=== PATIENT | male | born 1960 | race Caucasian/White ===

== ENCOUNTER 2016-11-08 02:27 | Observation (INO) | payer OTHER ==
[~2016-11-08] VITALS: Ht 177.8 cm; Wt 152.0 kg
[~2016-11-08 02:27] MED LIST: ASPI81TA21 PO; DILT180C PO; FLAX10007 PO; LPT/20 PO; LSN20 PO; LXP10 PO; MULT60CA PO; NTRGSL/4 UT; PANT40TA PO; RST15 PO; WARF2TAB PO; WARF4TAB PO
[2016-11-08] MEDS ORDERED: ESCI1TAB10 PO (02:58)
[2016-11-08] MEDS ORDERED: TEMA15CA4 PO (02:59)
[2016-11-08] MEDS ORDERED: APIX1TAB3 PO (03:00)
[2016-11-08 03:02] LABS: BASO % 0.4 %; BASO ABS # 0.03 K/uL (0-0.2); COMPLETE YES; EOS % 1.9 %; HEMATOCRIT 39.9 % (42-52); IG% 0.4 %; LYMPH % 23.9 %; MEAN CELL VOLUME 89.3 fL (80-100); MEAN CORPUSCULAR HEMOGLOBIN 31.5 pg (25-34); MEAN CORPUSCULAR HGB CONC 35.3 g/dl (32-36); MEAN PLATELET VOLUME 9.1 fL (7.4-10.4); MONO % 6.9 %; NEUT % 66.5 %; PLATELET COUNT 214 K/uL (130-400); RED BLOOD COUNT 4.47 M/uL (4.7-6.1); WHITE BLOOD COUNT 7.96 K/uL (4.8-10.8)
[2016-11-08] MEDS ORDERED: CHOL1000 PO (03:02)
--- NOTE | 2016-11-08 03:14 | EMERGENCY ROOM VISIT NOTE ---
History Report prepared by Fernando: Kali Salgado Under the Supervision of: Dr. Zhanna Traore D.O. First contact with patient: 02:36 Chief Complaint: CARDIAC ASSESSMENT Stated Complaint: CARDIAC ASSESSMENT History of Present Illness The patient is a 56 year old male who presents to the Emergency Room via [facility] with complaints of chest discomfort that began and resolved shortly prior to arrival. The patient states that he experienced slight pain in his chest, before becoming "extremely hot." The burning sensation in his chest resolved spontaneously before the patient took any nitroglycerin. He was sitting in his chair when the burning began and he was not exerting himself in anyway. The patient also notes becoming light headed and weak following this episode. He felt like he was close to passing out, but did not go unconscious at anytime. He is not experiencing the burning or chest pain at this time. He denies any recent fevers, chills, or coughs. The patient has a history of SVT and had a cardiac catheterization a few years ago. He notes having one blockage of 30-40%, but did not have any stents placed. The patient is on hypertension and hyperlipidemia medication along with Lisinopril and Cardizem. 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 A total of 10 systems reviewed and were otherwise negative. Past Medical & Surgical Medical Problems: (1) Emphysema (2) Hypertension (3) Sleep apnea (4) Stomach problems (5) SVT (supraventricular tachycardia) Surgical Problems: (1) Hx of prior ablation treatment Family History Diabetes mellitus FHx: heart disease Hypertension Social History Smoking Status: Current Every Day Smoker Alcohol Use: occasionally Marital Status: single Housing Status: lives alone Occupation Status: retired Current/Historical Medications Scheduled Apixaban (Eliquis), 5 MG PO BID Aspirin Enteric Coated (Ecotrin Or Generic), 81 MG PO DAILY Atorvastatin (Atorvastatin Calcium), 40 MG PO DAILY Cholecalciferol (Vitamin D3), 500 INTERUNIT PO DAILY Diltiazem Hcl Coated Beads (Diltiazem Hcl Er), 180 MG PO DAILY Escitalopram Oxalate (Lexapro), 20 MG PO HS Flaxseed (Linseed) (Flax Seed Oil), 2,000 MG PO DAILY Lisinopril (Lisinopril), 20 MG PO BID Multiple Vitamins W/ Minerals (Preservision Areds 2), 1 CAP PO DAILY Pantoprazole (Protonix), 40 MG PO BID Scheduled PRN Nitroglycerin (Nitrostat), 0.4 MG UT PRN PRN for Chest Pain Temazepam (Restoril), 15 MG PO HS PRN for insomnia Allergies Coded Allergies: No Known Allergies (Unverified , 11/08/16) Physical Exam Vital Signs Date Time Temp Pulse Resp B/P Pulse Ox O2 Delivery O2 Flow Rate FiO2 11/08/16 05:25 79 18 145/90 94 11/08/16 04:05 75 20 131/73 94 Room Air 11/08/16 02:36 95 Room Air 11/08/16 02:36 36.7 86 20 177/123 95 Room Air 11/08/16 02:35 86 Physical Exam HEENT: Head - normocephalic and atraumatic Pupils are equal, round, and reactive to light. Extraocular eye muscles are intact, and sclera are anicteric. Nose - moist nasal mucosa without discharge. Mouth - moist buccal mucosa. Oropharynx is nonerythematous and there is no tonsillar exudate or edema noted. Neck: Supple; no JVD, nuchal rigidity, cervical lymphadenopathy, or auscultated bruits. Heart: Regular rate and rhythm. There is a normal S1 and S2 with no murmurs, clicks, or gallops appreciated. Lungs: Clear to auscultation bilaterally with no wheezes, rales, or rhonchi. Abdomen: Soft, completely nontender, nondistended, with good bowel sounds. There are no palpable pulsatile masses or hepatosplenomegaly. There is no guarding, rigidity, or rebound noted. Extremities: No evidence of cyanosis, clubbing, or edema. There are easily palpable peripheral pulses. Skin: warm and dry with good turgor and no rashes. Medical Decision & Procedures ER Provider Diagnostic Interpretation: X-ray results as stated below per interpretation by me and the radiologist: CHEST X-RAY: Significant cardiomegaly. X-ray is under-penetrated. No obvious pulmonary infiltrate. Laboratory Results 11/08/16 02:48 Red Blood Count 4.47, Mean Corpuscular Volume 89.3, Mean Corpuscular Hemoglobin 31.5, Mean Corpuscular Hemoglobin Concent 35.3, Mean Platelet Volume 9.1, Neutrophils (%) (Auto) 66.5, Lymphocytes (%) (Auto) 23.9, Monocytes (%) (Auto) 6.9, Eosinophils (%) (Auto) 1.9, Basophils (%) (Auto) 0.4, Neutrophils # (Auto) 5.30, Lymphocytes # (Auto) 1.90, Monocytes # (Auto) 0.55, Eosinophils # (Auto) 0.15, Basophils # (Auto) 0.03 11/08/16 02:48 Test 11/08/16 02:48 White Blood Count 7.96 K/uL (4.8-10.8) Red Blood Count 4.47 M/uL (4.7-6.1) Hemoglobin 14.1 g/dL (14.0-18.0) Hematocrit 39.9 % (42-52) Mean Corpuscular Volume 89.3 fL (80-100) Mean Corpuscular Hemoglobin 31.5 pg (25-34) Mean Corpuscular Hemoglobin Concent 35.3 g/dl (32-36) Platelet Count 214 K/uL (130-400) Mean Platelet Volume 9.1 fL (7.4-10.4) Neutrophils (%) (Auto) 66.5 % Lymphocytes (%) (Auto) 23.9 % Monocytes (%) (Auto) 6.9 % Eosinophils (%) (Auto) 1.9 % Basophils (%) (Auto) 0.4 % Neutrophils # (Auto) 5.30 K/uL (1.4-6.5) Lymphocytes # (Auto) 1.90 K/uL (1.2-3.4) Monocytes # (Auto) 0.55 K/uL (0.11-0.59) Eosinophils # (Auto) 0.15 K/uL (0-0.5) Basophils # (Auto) 0.03 K/uL (0-0.2) RDW Standard Deviation 44.2 fL (36.4-46.3) RDW Coefficient of Variation 13.5 % (11.5-14.5) Immature Granulocyte % (Auto) 0.4 % Immature Granulocyte # (Auto) 0.03 K/uL (0.00-0.02) D-Dimer < 190 ug/L FEU (0-500) Anion Gap 8.0 mmol/L (3-11) Est Creatinine Clear Calc Drug Dose 102.3 ml/min Estimated GFR () 77.9 Estimated GFR (Non- 67.2 BUN/Creatinine Ratio 13.4 (10-20) Calcium Level 8.7 mg/dl (8.5-10.1) Total Bilirubin 0.4 mg/dl (0.2-1) Aspartate Amino Transf (AST/SGOT) 15 U/L (15-37) Alanine Aminotransferase (ALT/SGPT) 30 U/L (12-78) Alkaline Phosphatase 140 U/L (45-117) Total Creatine Kinase 90 U/L (39-308) Creatine Kinase MB 0.9 ng/ml (0.5-3.6) Creatine Kinase MB Ratio 1.0 (0-3.0) Troponin I < 0.015 ng/ml (0-0.045) Total Protein 7.0 gm/dl (6.4-8.2) Albumin 3.6 gm/dl (3.4-5.0) Globulin 3.4 gm/dl (2.5-4.0) Albumin/Globulin Ratio 1.1 (0.9-2) Laboratory results per my review. ECG Indication: chest pain Rate (beats per minute): 85 Rhythm: normal sinus Findings: no acute ischemic change, no ectopy ED Course 0238: Past medical records reviewed. The patient was evaluated in room B11. A complete history and physical exam was performed. The patient was observed on the cardiac monitor technician and pulse oximeter. Laboratory studies were drawn as above. A twelve-lead EKG was obtained as described above. The patient a portable chest x-ray as described above. 0354: I checked on the patient at this time. He remains hypertensive. I ordered Lopressor on this patient but nursing staff repeated blood pressure prior to administering it and it had come down nicely on its own. 0445: I discussed the case with Dr. [facility] hospitalist, he will evaluate the patient for further treatment. Medical Decision The patient is a 56 year old male who presents to the Emergency Department for "burning" in his chest. Differential Diagnosis include; Cardiac dysrhythmia, cardiac ischemia, unstable angina, near syncope, aortic dissection, and pulmonary embolism. Laboratory studies were reviewed and showed; No leukocytosis, stable hemoglobin and hematocrit, D-dimer less than 190, glucose of 110, normal renal function, normal LFTs, and negative cardiac enzymes. This is a 56-year-old male patient with a history of A. fib status post ablation who presents to the emergency department after an episode of left- sided chest pain and a near syncopal event. The patient was at rest this evening when he had a very sad and onset of chest discomfort and near syncope. I'm concerned about the possibility of a cardiac dysrhythmia. Cardiac enzymes and twelve-lead EKG were unremarkable. The patient remained hemodynamically stable while here in the emergency department. I discussed the case with the [facility] hospitalist and they will evaluate for further management. Consults Time Called: 035 Consulting Physician: Dr. Adalgisa GARDNER Hospitalist Returned Call: [phone] I discussed the case with Dr. Adalgisa GARDNER hospitalist, he will evaluate the patient for further treatment. Impression Primary Impression: Left sided chest pain Additional Impression: Near syncope Scribe Attestation The scribe's documentation has been prepared under my direction and personally reviewed by me in its entirety. I confirm that the note above accurately reflects all work, treatment, procedures, and medical decision making performed by me. Departure Information Dispostion Being Evaluated By Hospitalist Referrals Wally Paredes D.O. (PCP) Patient Instructions My [facility] Health Problem Qualifiers
[2016-11-08 03:20] LABS: ALT/SGPT 30 U/L (12-78); AST/SGOT 15 U/L (15-37); BLOOD UREA NITROGEN 16 mg/dl (7-18); BUN/CREATININE RATIO 13.4 (10-20); CALCIUM 8.7 mg/dl (8.5-10.1); CARBON DIOXIDE 26 mmol/L (21-32); CHLORIDE 107 mmol/L (98-107); GLUCOSE 110 mg/dl (70-99); SODIUM 141 mmol/L (136-145)
[2016-11-08 03:25] LABS: ALB/GLOB RATIO 1.1 (0.9-2); ALKALINE PHOSPHATASE 140 U/L (45-117)
[2016-11-08] MEDS ORDERED: METOPROLOL TARTRATE 1 MG/ML VIAL IV STA (04:05)
[2016-11-08] MEDS ORDERED: ONDANSETRON INJ 2 MG/ML 2 ML VIAL IV PRN (04:45)
[2016-11-08] MEDS ORDERED: POLYETHYLENE (MIRALAX) 17 GM PACK PO PRN (04:45)
[2016-11-08] MEDS ORDERED: NITROGLYCERIN 0.4 MG SL PER TAB CHARGE SL PRN (04:45)
[2016-11-08] MEDS ORDERED: ACETAMINOPHEN 325 MG TAB PO PRN (04:45)
[2016-11-08] MEDS ORDERED: TEMAZEPAM 15 MG CAP PO PRN (04:45)
[2016-11-08] MEDS ORDERED: MAGNESIUM HYDROXIDE SUSP 30 ML UDC PO PRN (04:45)
[2016-11-08] MEDS ORDERED: ALUMINUM/MAGNESIUM/SIMETH (MAALOX MAX) 30 ML UDC PO PRN (04:45)
[2016-11-08] MEDS ORDERED: NITROGLYCERIN 0.4 MG SL PER TAB CHARGE UT PRN (04:45)
--- NOTE | 2016-11-08 05:05 | History and Physical ---
History & Physical Date & Time of Service: Nov 08, 2016 at 04:56 Chief Complaint: Cardiac Assessment Primary Care Physician: Wally Paredes D.O. History of Present Illness Source: patient This is a 56 y/o M with a pmh of morbid obesity, HTN, mild CAD s/p cath, PE (on elaquis), DVT, Obesity, PSVT s/p Catheter ablation, sleep apnea s/p oral surgery , stable suprasellar lesions (follows [facility]) who presents with left sided chest pain that started a few hours ago. He reports having an associated "hot sensation" along with heart fluttering. He checked his blood pressure and it was 171/105 and the monitor reported an irregular rhythm with a rate in the 90' s. He subsequently started getting lightheaded and short of breath. This lasted about 0.5 hr before ALS got there. His symptoms started to resolve and he did not take nitroglycering. The pain was probably a 3/10 and more of an 'Annoyance " than real pain. He has not experienced pain likethis before. He denies any radiation to his arm or neck. He did have some nausea earlier. Currently Denies fever, chills, vomiting, chest pain, shortness of breath, abdominal pain, changes in bowel habits, melena, hematochezia. He has a history of SVT that was managed with meds for years and eventually had an ablation and has been SVT free since. He did have a cardiac cath in 2013 that revealed 30-40% stenosis of his RCA He did have a recent Stress echo (apr 2016) that showed some decreased exercise tolerance but no ECG changes and no echo findings concerning for ischemia/infarction. LVEF of 60% with Mild LVH Past Medical/Surgical History Medical Problems: (1) Emphysema Status: Chronic (2) Hypertension Status: Chronic (3) Sleep apnea Status: Chronic (4) Stomach problems Status: Chronic Family History Diabetes mellitus FHx: heart disease Hypertension Social History Smoking Status: Former Smoker Alcohol Use: occasionally Drug Use: none Marital Status: single Housing status: lives alone Occupational Status: retired Allergies Coded Allergies: No Known Allergies (Unverified , 11/08/16) Home Medications Scheduled Apixaban (Eliquis), 5 MG PO BID Aspirin Enteric Coated (Ecotrin Or Generic), 81 MG PO DAILY Atorvastatin (Atorvastatin Calcium), 40 MG PO DAILY Cholecalciferol (Vitamin D3), 500 INTERUNIT PO DAILY Diltiazem Hcl Coated Beads (Diltiazem Hcl Er), 180 MG PO DAILY Escitalopram Oxalate (Lexapro), 20 MG PO HS Flaxseed (Linseed) (Flax Seed Oil), 2,000 MG PO DAILY Lisinopril (Lisinopril), 20 MG PO BID Multiple Vitamins W/ Minerals (Preservision Areds 2), 1 CAP PO DAILY Pantoprazole (Protonix), 40 MG PO BID Scheduled PRN Nitroglycerin (Nitrostat), 0.4 MG UT PRN PRN for Chest Pain Temazepam (Restoril), 15 MG PO HS PRN for insomnia Review of Systems Constitutional: + sweats, No chills, No fever Eyes: No worsening of vision ENT: No hearing loss Respiratory: + shortness of breath, No cough, No dyspnea at rest, No dyspnea on exertion, No sputum, No wheezing Cardiovascular: + chest pain, No PND, No claudication, No edema, No orthopnea Abdomen: No constipation, No diarrhea, No nausea, No pain, No vomiting Musculoskeletal: No calf pain, No joint pain, No muscle pain, No swelling Genitourinary - Male: No dysuria, No hematuria, No urinary frequency, No urinary urgency Physical Exam Vital Signs Date Time Temp Pulse Resp B/P Pulse Ox O2 Delivery O2 Flow Rate FiO2 11/08/16 04:05 75 20 131/73 94 Room Air 11/08/16 02:36 95 Room Air 11/08/16 02:36 36.7 86 20 177/123 95 Room Air 11/08/16 02:35 86 General Appearance: no apparent distress, + obese Head: normocephalic, atraumatic Eyes: PERRL, EOMI ENT: hearing grossly normal Neck: supple, no adenopathy, thyroid normal Respiratory/Chest: lungs clear, normal breath sounds, no respiratory distress Cardiovascular: regular rate, rhythm, no edema, no murmur, normal peripheral pulses Abdomen/GI: normal bowel sounds, non tender, soft Back: normal inspection, no CVA tenderness, normal range of motion Extremities/Musculoskelatal: no calf tenderness, no pedal edema, normal range of motion 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, no motor/sensory deficits, alert, normal mood/affect, oriented x 3 Diagnostics Laboratory Results Results Past 24 Hours Test 11/08/16 02:48 Range/Units White Blood Count 7.96 4.8-10.8 K/uL Red Blood Count 4.47 4.7-6.1 M/uL Hemoglobin 14.1 14.0-18.0 g/dL Hematocrit 39.9 42-52 % Mean Corpuscular Volume 89.3 80-100 fL Mean Corpuscular Hemoglobin 31.5 25-34 pg Mean Corpuscular Hemoglobin Concent 35.3 32-36 g/dl Platelet Count 214 130-400 K/uL Mean Platelet Volume 9.1 7.4-10.4 fL Neutrophils (%) (Auto) 66.5 % Lymphocytes (%) (Auto) 23.9 % Monocytes (%) (Auto) 6.9 % Eosinophils (%) (Auto) 1.9 % Basophils (%) (Auto) 0.4 % Neutrophils # (Auto) 5.30 1.4-6.5 K/uL Lymphocytes # (Auto) 1.90 1.2-3.4 K/uL Monocytes # (Auto) 0.55 0.11-0.59 K/uL Eosinophils # (Auto) 0.15 0-0.5 K/uL Basophils # (Auto) 0.03 0-0.2 K/uL RDW Standard Deviation 44.2 36.4-46.3 fL RDW Coefficient of Variation 13.5 11.5-14.5 % Immature Granulocyte % (Auto) 0.4 % Immature Granulocyte # (Auto) 0.03 0.00-0.02 K/uL D-Dimer < 190 0-500 ug/L FEU Sodium Level 141 136-145 mmol/L Potassium Level 4.0 3.5-5.1 mmol/L Chloride Level 107 98-107 mmol/L Carbon Dioxide Level 26 21-32 mmol/L Anion Gap 8.0 3-11 mmol/L Blood Urea Nitrogen 16 7-18 mg/dl Creatinine 1.20 0.60-1.40 mg/dl Est Creatinine Clear Calc Drug Dose 102.3 ml/min Estimated GFR () 77.9 Estimated GFR (Non- 67.2 BUN/Creatinine Ratio 13.4 10-20 Random Glucose 110 70-99 mg/dl Calcium Level 8.7 8.5-10.1 mg/dl Total Bilirubin 0.4 0.2-1 mg/dl Aspartate Amino Transf (AST/SGOT) 15 15-37 U/L Alanine Aminotransferase (ALT/SGPT) 30 12-78 U/L Alkaline Phosphatase 140 45-117 U/L Total Creatine Kinase 90 39-308 U/L Creatine Kinase MB 0.9 0.5-3.6 ng/ml Creatine Kinase MB Ratio 1.0 0-3.0 Troponin I < 0.015 0-0.045 ng/ml Total Protein 7.0 6.4-8.2 gm/dl Albumin 3.6 3.4-5.0 gm/dl Globulin 3.4 2.5-4.0 gm/dl Albumin/Globulin Ratio 1.1 0.9-2 Impression Assessment and Plan This is a 56 y/o M who presents with left sided chest pain, diaphoresis, nausea , shortness of breath; concerning for ACS vs. Gerd Vs. anxiety. Chest pain rule out: EKG without st changes, no ectopy Initial troponin negative, trend x 3 Did have stress test recently, so will hold on this but will get an Echo. EKG with chest pain Observe on Tele nitro prn chest pain h/o of DVT/PE Continue Elaquis h/o of SVT- stable Continue Diltiazem htn Continue Lisinopril Suprasellar mass- stable Gerd Continue protonix Code: Full VTE Prophylaxis VTE Risk Assessment Done? Y/N: Yes Risk Level: High Assessment and Plan Attending Addendum: I have physically seen and examined this patient, have directed their medical care, have supervised the medical residents activities, and agree with the H&P as noted above, with the following changes: NONE
[2016-11-08] MEDS ORDERED: MoRPHine SULFATE 2 MG/ML CARP IV PRN (05:15)
[2016-11-08] MEDS ORDERED: IV FLUIDS COMPLETED PRN (05:15)
[2016-11-08 05:56] VITALS: BP 135/81; PULSE 70; TEMP 36.6; O2SAT 96; Ht 177.8 cm; Wt 152.0 kg
--- NOTE | 2016-11-08 06:52 | DIAGNOSTIC IMAGING REPORT ---
CHEST ONE VIEW PORTABLE CLINICAL HISTORY: Atypical chest pain COMPARISON STUDY: 07/20/2015 FINDINGS: The heart remains enlarged. There is no failure. There is no focal pulmonary consolidation. There are no pleural effusions. There is stable linear atelectasis/scarring at the left lung base.[ IMPRESSION: No active disease in the chest. Electronically signed by: Humberto Rahman M.D. 11/08/2016 6:50 AM Dictated Date/Time: 11/08/2016 6:50 AM
[2016-11-08 07:40] VITALS: BP 130/72; PULSE 82; TEMP 36.7; O2SAT 92
[2016-11-08] MEDS ORDERED: NURSING VERBAL MED ORDER ONE (08:45)
[2016-11-08] MEDS ORDERED: PANTOprazole SOD 40 MG TAB PO SCH (09:00)
[2016-11-08] MEDS ORDERED: DILTIAZEM HCL 180 MG CAPCR PO SCH (09:00)
[2016-11-08] MEDS ORDERED: ASPIRIN 81 MG ECTAB PO SCH (09:00)
[2016-11-08] MEDS ORDERED: APIXABAN 2.5 MG TAB PO SCH (09:00)
[2016-11-08] MEDS ORDERED: LISINOPRIL 20 MG TAB PO SCH (09:00)
[2016-11-08] MEDS ORDERED: ATORVASTATIN 20 MG TAB PO SCH (09:00)
[2016-11-08] MEDS ORDERED: PERFLUTREN LIPID MICROSPHERE (DEFINITY) IV ONE ×2 (10:10→13:37)
[2016-11-08 11:23] VITALS: BP 118/73; PULSE 77; TEMP 36.6; O2SAT 92
--- NOTE | 2016-11-08 12:41 | ECHOCARDIOGRAM REPORT ---
*NOTICE TO RECEIVING CONSTITUTION PARTY AGENCY This information is strictly Confidential and protected under [place] law. [place] law prohibits you from making any further disclosure of this information unless further disclosure is expressly permitted by the written consent of the person to whom it pertains or is authorized by law. A general authorization for the release of medical or other information is not sufficient for this purpose. Hospital accepts no responsibility if the information is made available to any other person, INCLUDING THE PATIENT. Interpretation Summary * Name: MALCOM CARLSON Study Date: 11/08/2016 09:06 AM BP: 145/90 mmHg * Patient Location: .2T\S\E217\S\1 HR: 65 * : 1960 (M/d/yyyy) Gender: Male Height: 70 in * Age: 56 yrs Ethnicity: CA Weight: 338 lb * Ordering Physician: Marjan Awan * Referring Physician: Self, Referred * Performed By: Deepti Martinez RCS * * Reason For Study: CHEST PAIN * BSA: 2.6 m2 * -- Conclusions -- * Left ventricular systolic function is normal. * No regional wall motion abnormalities noted. * Ejection Fraction = 55-60%. * No significant valvular pathology. Procedure Details * A complete two-dimensional transthoracic echocardiogram was performed (2D, M-mode, Doppler and color flow Doppler). * The study was technically difficult. * There were technical limitations due to patient'sbody habitus * A contrast injection of Definity was performed to improve assessment of LV function. * Contrast was injected into an intravenous site in the left arm. * One vial of Definity ultrasound contrast was diluted in normal saline to a total volume of 10 ml. A total of '2' ml of solution was administered during imaging. * Lot # [id number] of Definity utilized for procedure. * Expiration date NOV 21. * The attending nurse who injected the contrast agent was GENA STREET RN. Left Ventricle * The left ventricle is normal in size. * There is borderline concentric left ventricular hypertrophy. * Ejection Fraction = 55-60%. * Left ventricular systolic function is normal. * No regional wall motion abnormalities noted. Right Ventricle * The right ventricle is not well visualized. * The right ventricular systolic function is normal as assessed by tricuspid annular plane systolic excursion (TAPSE) (normal >1.5 cm). Atria * The left atrium is mildly dilated. * Right atrium not well visualized. * There is no evidence of atrial septal defect, but resolution does not allow assessment for a patent foramen ovale. Mitral Valve * The mitral valve anatomy is normal. * There is no mitral valve stenosis. * Significant mitral regurgitation is absent. Tricuspid Valve * The tricuspid valve is not well visualized, but is grossly normal. * Significant tricuspid regurgitation is absent. Aortic Valve * The aortic valve is normal in structure and function. * No hemodynamically significant valvular aortic stenosis. * No aortic regurgitation is present. Pulmonic Valve * The pulmonary valve is not well seen, but the Doppler examination is normal without significant regurgitation or stenosis. Great Vessels * The aortic root is normal size. * The pulmonary is not well visualized. Pericardium/Pleural * There is no pericardial effusion. Great Vessels * IVC not well seen. MMode 2D Measurements and Calculations IVSd 1.6 cm IVSs 1.9 cm LVIDd 5.1 cm LVIDs 3.9 cm LVPWd 1.2 cm LVPWs 1.9 cm IVS/LVPW 1.4 FS 23.4 % EDV(Teich) 122.5 ml ESV(Teich) 65.5 ml EF(Teich) 46.6 % EDV(cubed) 130.9 ml ESV(cubed) 58.8 ml EF(cubed) 55.0 % % IVS thick 16.1 % % LVPW thick 60.0 % LV mass(C)d 299.0 grams LV mass(C)dI 114.6 grams/m\S\2 LV mass(C)s 325.4 grams LV mass(C)sI 124.7 grams/m\S\2 SV(Teich) 57.1 ml SI(Teich) 21.9 ml/m\S\2 SV(cubed) 72.1 ml SI(cubed) 27.6 ml/m\S\2 Ao root diam 3.6 cm Ao root area 10.4 cm\S\2 LA dimension 4.2 cm LA/Ao 1.2 LVOT diam 2.0 cm LVOT area 3.2 cm\S\2 Doppler Measurements and Calculations MV E max manuel 87.5 cm/sec MV A max manuel 60.8 cm/sec MV E/A 1.4 MV P1/2t max manuel 90.6 cm/sec MV P1/2t 77.6 msec MVA(P1/2t) 2.8 cm\S\2 MV dec slope 342.1 cm/sec\S\2 MV dec time 0.24 sec Ao V2 max 137.7 cm/sec Ao max PG 7.6 mmHg Ao max PG (full) 4.0 mmHg STELLA(V,A) 2.2 cm\S\2 STELLA(V,D) 2.2 cm\S\2 LV V1 max PG 3.6 mmHg LV V1 max 95.0 cm/sec PA V2 max 102.4 cm/sec PA max PG 4.2 mmHg
--- NOTE | 2016-11-08 14:11 | CARDIOLOGY PROGRESS NOTE ---
DATE: 11/08/2016 DATE: 11/08/2016. SUBJECTIVE: Mr. Dejesus's history was reviewed in detail. He presented with complaints of several minutes of a substernal "hot flash", which occurred to resolved spontaneously. This sensation was accompanied by a headache and dizziness which lasted for several hours. OBJECTIVE: VITAL SIGNS: Blood pressure 118/73 with a regular pulse of 77. Respiratory rate is 20. The patient is afebrile at 36.6 degrees Celsius. Saturations 92% on room air. NECK: Supple with full carotid upstrokes. There are no carotid bruits. Jugular venous pressure is flat at 90 degrees. There is no thyromegaly. CARDIOVASCULAR EXAMINATION: Reveals a regular rhythm with normal S1 and S2. Heart sounds are distant. No obvious murmurs. LUNGS: Clear without rales, rhonchi, or wheezes. ABDOMEN: Soft and nontender without bruits. EXTREMITIES: Reveal intact radial artery pulses bilaterally. Trace pretibial edema is noted. LABORATORY DATA: CBC notes hemoglobin 14.1, hematocrit 39.9, white count 7.9, platelet count 214,000. Electrolytes note a sodium of 141, potassium 4.0, chloride 107, bicarb 26, BUN 16, creatinine 1.2, glucose 110. EKG notes normal sinus rhythm without abnormalities. 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 Baseline echocardiogram notes normal left ventricular systolic function without wall motion abnormalities. There is borderline left ventricular hypertrophy and no evidence of valvular pathology. IMPRESSION AND PLAN: 1. Chest pain syndrome -- atypical for classic angina pectoris. We will proceed with a stress echocardiogram. 2. Coronary artery disease -- patient has had 3 cardiac catheterizations, most recent of which was July 2014. Each study showed a 30-40% mid right coronary stenosis. No other disease. He had a normal stress echocardiogram in April [address] Newsome. 3. Hypertension -- controlled. 4. Hypercholesterolemia. 5. History of paroxysmal supraventricular tachycardia status post radiofrequency ablation in November [address] Juan. 6. Emphysema.
--- NOTE | 2016-11-08 15:11 | Discharge Instructions ---
Discharge Instructions Date of Service Nov 08, 2016. Admission Reason for Admission: Chest Pain Discharge Discharge Diagnosis / Problem: Chest pain Discharge Goals Goal(s): Improve function Activity Recommendations Activity Limitations: resume your previous activity Lifting Limitations: none Exercise/Sports Limitations: none May Resume Sexual Activity: when tolerated Shower/Bathe: no limitations Driving or Machine Use: no limitations . Instructions / Follow-Up Instructions / Follow-Up Cardiology in one month Current Hospital Diet Patient's current hospital diet: AHA Diet (Heart Healthy), Low Sodium Diet (2gm Na) Discharge Diet Recommended Diet: AHA Diet (Heart Healthy) Pending Studies Studies pending at discharge: no Laboratory Results 11/08/16 02:48 Red Blood Count 4.47, Mean Corpuscular Volume 89.3, Mean Corpuscular Hemoglobin 31.5, Mean Corpuscular Hemoglobin Concent 35.3, Mean Platelet Volume 9.1, Neutrophils (%) (Auto) 66.5, Lymphocytes (%) (Auto) 23.9, Monocytes (%) (Auto) 6.9, Eosinophils (%) (Auto) 1.9, Basophils (%) (Auto) 0.4, Neutrophils # (Auto) 5.30, Lymphocytes # (Auto) 1.90, Monocytes # (Auto) 0.55, Eosinophils # (Auto) 0.15, Basophils # (Auto) 0.03 11/08/16 02:48 Test 11/08/16 02:48 11/08/16 10:44 White Blood Count 7.96 K/uL (4.8-10.8) Red Blood Count 4.47 M/uL (4.7-6.1) Hemoglobin 14.1 g/dL (14.0-18.0) Hematocrit 39.9 % (42-52) Mean Corpuscular Volume 89.3 fL (80-100) Mean Corpuscular Hemoglobin 31.5 pg (25-34) Mean Corpuscular Hemoglobin Concent 35.3 g/dl (32-36) Platelet Count 214 K/uL (130-400) Mean Platelet Volume 9.1 fL (7.4-10.4) Neutrophils (%) (Auto) 66.5 % Lymphocytes (%) (Auto) 23.9 % Monocytes (%) (Auto) 6.9 % Eosinophils (%) (Auto) 1.9 % Basophils (%) (Auto) 0.4 % Neutrophils # (Auto) 5.30 K/uL (1.4-6.5) Lymphocytes # (Auto) 1.90 K/uL (1.2-3.4) Monocytes # (Auto) 0.55 K/uL (0.11-0.59) Eosinophils # (Auto) 0.15 K/uL (0-0.5) Basophils # (Auto) 0.03 K/uL (0-0.2) RDW Standard Deviation 44.2 fL (36.4-46.3) RDW Coefficient of Variation 13.5 % (11.5-14.5) Immature Granulocyte % (Auto) 0.4 % Immature Granulocyte # (Auto) 0.03 K/uL (0.00-0.02) D-Dimer < 190 ug/L FEU (0-500) Anion Gap 8.0 mmol/L (3-11) Est Creatinine Clear Calc Drug Dose 102.3 ml/min Estimated GFR () 77.9 Estimated GFR (Non- 67.2 BUN/Creatinine Ratio 13.4 (10-20) Calcium Level 8.7 mg/dl (8.5-10.1) Total Bilirubin 0.4 mg/dl (0.2-1) Aspartate Amino Transf (AST/SGOT) 15 U/L (15-37) Alanine Aminotransferase (ALT/SGPT) 30 U/L (12-78) Alkaline Phosphatase 140 U/L (45-117) Total Creatine Kinase 90 U/L (39-308) Creatine Kinase MB 0.9 ng/ml (0.5-3.6) Creatine Kinase MB Ratio 1.0 (0-3.0) Total Protein 7.0 gm/dl (6.4-8.2) Albumin 3.6 gm/dl (3.4-5.0) Globulin 3.4 gm/dl (2.5-4.0) Albumin/Globulin Ratio 1.1 (0.9-2) Troponin I < 0.015 ng/ml (0-0.045) Medical Emergencies . Who to Call and When: Medical Emergencies: If at any time you feel your situation is an emergency, please call 911 immediately. . Non-Emergent Contact Non-Emergency issues call your: Primary Care Provider . Past History Medical & Surgical History: (1) Coronary artery disease (2) Chest pain (3) Sleep apnea (4) Hypertension (5) Emphysema (6) Supraventricular tachycardia, paroxysmal . "Provider Documentation" section prepared by Ortega Stone. VTE Core Measure Inpt VTE Proph given/why not?: SCD's
--- NOTE | 2016-11-08 15:14 | Discharge Summary ---
Discharge Summary Date of Service Nov 08, 2016. Discharge Summary Admission Date: Nov 08, 2016 at 04:49 Discharge Date: Nov 08, 2016 Discharge Disposition: Home Principal Diagnosis: Chest pain Problems/Secondary Diagnoses: Coronary artery disease Hyperlipidemia HTN Hx of DVT/PE Consultations: Cardiology Medication Reconciliation Continued Medications: Apixaban (Eliquis) 5 Mg Tab 5 MG PO BID, TAB Aspirin Enteric Coated (Ecotrin Or Generic) 81 Mg Tab 81 MG PO DAILY Atorvastatin (Atorvastatin Calcium) 20 Mg Tab 40 MG PO DAILY Cholecalciferol (Vitamin D3) 1,000 Unit Tab 500 INTERUNIT PO DAILY for 90 Days, TAB 3 Refills Diltiazem Hcl Coated Beads (Diltiazem Hcl Er) 180 Mg Cap 180 MG PO DAILY, 3 Refills Escitalopram Oxalate (Lexapro) 20 Mg Tab 20 MG PO HS, TAB Flaxseed (Linseed) (Flax Seed Oil) 1,000 Mg Cap 2000 MG PO DAILY Lisinopril (Lisinopril) 20 Mg Tab 20 MG PO BID Multiple Vitamins W/ Minerals (Preservision Areds 2) 1 Cap Cap 1 CAP PO DAILY Nitroglycerin (Nitrostat) 0.4 Mg Tab 0.4 MG UT PRN PRN for Chest Pain, BTL Pantoprazole (Protonix) 40 Mg Tab 40 MG PO BID Temazepam (Restoril) 15 Mg Cap 15 MG PO HS PRN for insomnia, CAP Discharge Exam Physical Exam: General Appearance: WD/WN, no apparent distress Eyes: normal inspection, PERRL ENT: normal ENT inspection, hearing grossly normal Neck: supple, no adenopathy, no JVD Respiratory/Chest: chest non-tender, lungs clear Cardiovascular: regular rate, rhythm, no edema Abdomen / GI: normal bowel sounds, soft Extremities: normal inspection 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 He reports having an associated "hot sensation" along with heart fluttering. He checked his blood pressure and it was 171/105 and the monitor reported an irregular rhythm with a rate in the 90' s. He subsequently started getting lightheaded and short of breath. This lasted about 0.5 hr before ALS got there. His symptoms started to resolve and he did not take nitroglycering. The pain was probably a 3/10 and more of an 'Annoyance " than real pain. He has not experienced pain likethis before. He denies any radiation to his arm or neck. He did have some nausea earlier. Currently Denies fever, chills, vomiting, chest pain, shortness of breath, abdominal pain, changes in bowel habits, melena, hematochezia. He has a history of SVT that was managed with meds for years and eventually had an ablation and has been SVT free since. He did have a cardiac cath in 2013 that revealed 30-40% stenosis of his RCA He did have a recent Stress echo (apr 2016) that showed some decreased exercise tolerance but no ECG changes and no echo findings concerning for ischemia/infarction. LVEF of 60% with Mild LVH A/P: 1. Chest pain syndrome -- atypical for classic angina pectoris. stress echocardiogram was normal. 2. Coronary artery disease -- patient has had 3 cardiac catheterizations, most recent of which was July 2014. Each study showed a 30-40% mid right coronary stenosis. No other disease. He had a normal stress echocardiogram in April [address] Newsome. 3. Hypertension -- controlled. 4. Hypercholesterolemia. 5. History of paroxysmal supraventricular tachycardia status post radiofrequency ablation in November [address] Juan. 6. Emphysema. Total Time Spent: Greater than 30 minutes This includes examination of the patient, discharge planning, medication reconciliation, and communication with other providers. Discharge Instructions Please refer to the electronic Patient Visit Report (Discharge Instructions) for additional information. Follow-Up Cardiology in one month
[2016-11-08 15:19] VITALS: BP 118/73; PULSE 77; TEMP 36.6; O2SAT 92
[2016-11-08 15:48] VITALS: BP 110/68; PULSE 83; TEMP 36.8; O2SAT 94
--- NOTE | 2016-11-08 15:52 | EXERCISE STRESS ECHO ---
*NOTICE TO RECEIVING [employer]ENCY This information is strictly Confidential and protected under [place] law. [place] law prohibits you from making any further disclosure of this information unless further disclosure is expressly permitted by the written consent of the person to whom it pertains or is authorized by law. A general authorization for the release of medical or other information is not sufficient for this purpose. Hospital accepts no responsibility if the information is made available to any other person, INCLUDING THE PATIENT. Interpretation Summary * Name: MALCOM CARLSON Study Date: 11/08/2016 12:40 PM BP: 133/67 mmHg * Patient Location: 2T\S\E217\S\1 HR: 74 * : 1960 (M/d/yyyy) Gender: Male Height: 70 in * Age: 56 yrs Ethnicity: CA Weight: 335 lb * Ordering Physician: Grabiel Evans * Referring Physician: Self, Referred * Performed By: Deepti Martinez RCS * * Reason For Study: CHEST PAIN * BSA: 2.6 m2 * -- Conclusions -- * Normal stress echocardiogram at 5.8 METS and a peak heart rate of 92% predicted maximum. * No exercise induced chest pain. * No EKG changes. * Baseline echocardiogram notes normal left ventricular systolic function withoout wall motion abnormality. Procedure Details * ECHOEX, CPT #98947 * A contrast injection of Definity was performed to improve assessment of LV function. * Contrast was injected into an intravenous site in the left arm. * One vial of Definity ultrasound contrast was diluted in normal saline to a total volume of 10 ml. A total of '2' ml of solution was administered during imaging. * Lot # [id number] of Definity utilized for procedure. * Expiration date NOV 21. * The attending nurse who injected the contrast agent was KODY MOREAU CPL, RN. Left Ventricle * Resting wall motion: Normal. Stress wall motion: Appropriate increase in Left ventricular systolic function and decrease in cavity size. No stress induced segmental wall motion abnormalities. Stress Parameters * Normal baseline electrocardiogram. * Stress ECG: No ST changes. No arrhythmias. * The stress portion of this study was personally supervised by the undersigned interpreting physician. * Rest heart rate was '74' BPM. * Rest blood pressure was '133/67' * Maximum heart rate achieved was 151 bpm. * Maximum heart rate was 92 % of maximum age-predicted heart rate. * Maximum blood pressure was '159/85' * Total exercise time was '04:05' * Maximum exercise MET level achieved was '5.80' METS * Maximum treadmill speed was '2.50' miles per hour. * Maximum treadmill elevation was '12.00'% grade.
[2016-11-08] MEDS ORDERED: ATORVASTATIN 40 MG TAB PO SCH (18:00)
[2016-11-08] MEDS ORDERED: ESCITALOPRAM OXALATE 20 MG TAB PO SCH (21:00)
== END 2016-11-08 16:42 | disposition home or self-care (01) ==
LOC: ENRESERVTM → ENRESERVDT → EDBD 02:27 → C.EDB 02:29 → C.2T 04:49
PROVIDERS: ADMIT Student in an Organized Health Care Education/Training Program; ATTEND Hospitalist
DX: R07.89 Other chest pain (principal); I25.10 Atherosclerotic heart disease of native coronary artery without angina pectoris; E78.5 Hyperlipidemia, unspecified; I10 Essential (primary) hypertension; G93.89 Other specified disorders of brain; E66.01 Morbid (severe) obesity due to excess calories; E78.00 Pure hypercholesterolemia, unspecified; Z86.718 Personal history of other venous thrombosis and embolism; Z86.711 Personal history of pulmonary embolism; Z79.82 Long term (current) use of aspirin; J43.9 Emphysema, unspecified; K21.9 Gastro-esophageal reflux disease without esophagitis; Z87.891 Personal history of nicotine dependence; Z83.3 Family history of diabetes mellitus; Z82.49 Family history of ischemic heart disease and other diseases of the circulatory system

== ENCOUNTER → 2016-11-21 | Outpatient (CLI) | payer OTHER ==
[~2016-11-21] MED LIST changes: +APIX1TAB3 PO; +CHOL1000 PO; +ESCI1TAB10 PO; -LXP10 PO; -RST15 PO; +TEMA15CA4 PO; -WARF2TAB PO; -WARF4TAB PO
--- NOTE | 2016-11-21 13:59 | DIAGNOSTIC IMAGING REPORT ---
CERVICAL SPINE MRI HISTORY: Cervical radiculopathy CERVICAL PAIN TECHNIQUE: Multiplanar multisequence MRI of the cervical spine was performed without the use of contrast. COMPARISON STUDY: None. FINDINGS: Normal signal characteristics of the vertebral bodies. Mild disc desiccation from C3 through C6. Unremarkable signal characteristics of the cervical cord. C2-C3: No significant central canal or neural foraminal narrowing. C3-C4: No significant central canal or neural foraminal narrowing. C4-C5: Slight broad-based disc bulge. Contact with but no significant deformity of the cervical cord. Neural foramina patent bilaterally. C5-C6: Broad-based bulging disc in contact with but showing no significant deformity of the cervical cord. Moderate osteophytic narrowing of the neuroforamina bilaterally. C6-C7: No significant central canal or neural foraminal narrowing. C7-T1: No significant central canal or neural foraminal narrowing. IMPRESSION: 1. Moderate broad-based bulging disc C5-C6 and to a lesser extent C4-C5. 2. At both sites there is contact with but no significant deformity of the cervical cord. 3. Mild narrowing of the neuroforamina bilaterally at C5-C6 and to lesser extent C4-C5 Electronically signed by: David Felix M.D. 11/21/2016 1:57 PM Dictated Date/Time: 11/21/2016 1:50 PM
== END | disposition home or self-care (01) ==
LOC: C.MRIBC 12:51
PROVIDERS: ATTEND Pain Medicine Interventional Pain Medicine
DX: M54.2 Cervicalgia (principal)

== ENCOUNTER → 2016-12-18 | Outpatient (CLI) | payer OTHER ==
[2016-12-18 13:50] LABS: THYROID STIMULATING HORMONE 0.553 uIu/ml (0.300-4.500)
== END | disposition home or self-care (01) ==
LOC: C.LABPBG 10:17
PROVIDERS: ATTEND Internal Medicine Endocrinology, Diabetes & Metabolism
DX: I10 Essential (primary) hypertension (principal); E78.5 Hyperlipidemia, unspecified; E23.6 Other disorders of pituitary gland

== ENCOUNTER → 2017-02-14 | Outpatient (CLI) | payer OTHER | END | disposition home or self-care (01) | LOC: C.LABPBG 14:54 | PROVIDERS: ATTEND Family Medicine | DX: M10.072 Idiopathic gout, left ankle and foot (principal) ==

== ENCOUNTER → 2017-12-03 | Outpatient (CLI) | payer OTHER ==
[~2017-12-03] MED LIST changes: +ASPI-319 PO; -ASPI81TA21 PO; -LPT/20 PO; +LPT20 PO
[2017-12-03 17:17] LABS: CREATININE 1.12 mg/dl (0.60-1.40)
== END | disposition home or self-care (01) ==
LOC: C.LABPBG 13:38
PROVIDERS: ATTEND Neurological Surgery
DX: R22.0 Localized swelling, mass and lump, head (principal)